=== PATIENT | female | born 1930 | race Caucasian/White ===

== ENCOUNTER 2017-01-30 22:16 | Inpatient (IN) | payer MEDICARE, BC ==
[~2017-01-30 22:16] MED LIST: ACIDOPHILUS LAC1 CAP PO; KEFLEX500 MG PO
[2017-01-30 23:28] LABS: BASOPHILS 0.2 % (0-2); EOSINOPHILS 1.6 % (0-7); HEMATOCRIT 34.2 % (36.0-48.0); HEMOGLOBIN 11.1 g/dL (12-16); IMMATURE GRANULOCYTES 2.4 % (0-5); LYMPHOCYTES 18.6 % (15-50); MCH 30.3 pg (26.0-34.0); MCHC 32.5 g/dL (31.0-37.0); MCV 93.4 fL (80.0-100.0); MEAN PLATELET VOLUME 9.4 fL (7.4-10.4); MONOCYTES 7.5 % (2-11); NEUTROPHILS 69.7 % (40-80); PLATELET COUNT 267 10x3/uL (130-400); RBC 3.66 10x6/uL (4.00-5.40); RDW 14.8 % (11.5-14.5); WBC 8.3 10x3/uL (4.8-10.8)
[2017-01-31] LABS: ALBUMIN 2.5 g/dL (3.4-5.0); BILIRUBIN - TOTAL 0.26 mg/dL (0.2-1.3); CALCIUM 8.2 mg/dL (8.5-10.1); CARBON DIOXIDE 27.8 mmol/L (21.0-32.0); CREATININE - SERUM 1.1 mg/dL (0.6-1.3); POTASSIUM - SERUM 3.8 mmol/L (3.5-5.1); PROTEIN - SERUM 7.3 g/dL (6.4-8.2)
[2017-01-31 00:08] LABS: MAGNESIUM - SERUM 2.1 mg/dL (1.8-2.4); TROPONIN-I 0.019 ng/mL (0.000-0.060)
[2017-01-31 00:11] LABS: APPEARANCE HAZY (CLEAR); BACTERIA FEW /hpf (NONE SEEN); BILIRUBIN NEGATIVE (NEGATIVE); COLOR YELLOW (YELLOW); EPITHELIAL CELLS 0-5 /hpf (0-5); GLUCOSE 250 mg/dL (NEGATIVE); KETONE NEGATIVE (NEGATIVE); NITRITE NEGATIVE (NEGATIVE); PROTEIN 1+ mg/dL (NEGATIVE); RED CELLS - URINE OCC /hpf (0-5); SPECIFIC GRAVITY 1.015 (1.005-1.020); WHITE CELLS - URINE RARE /hpf (0-5)
[2017-01-31 04:00] VITALS: BP 180/84
[2017-01-31 05:40] VITALS: BP 180/84; BMI 27.4
[2017-01-31] MEDS ORDERED: ZANTAC150 MG PO (06:47)
[2017-01-31] MEDS ORDERED: ACETAMINOPHEN325 MG PO (06:48)
[2017-01-31] MEDS ORDERED: TRAZODONE HCL50 MG PO (06:48)
[2017-01-31] MEDS ORDERED: OMEPRAZOLE20 M1 PO (06:49)
[2017-01-31] MEDS ORDERED: K-TAB10 MEQ PO (06:50)
[2017-01-31] MEDS ORDERED: GAS-X80 MG PO (06:51)
[2017-01-31] MEDS ORDERED: METOPROLOL TAR100 M1 PO (06:52)
[2017-01-31] MEDS ORDERED: MILK OF MAGNESI30 ML PO (06:52)
[2017-01-31] MEDS ORDERED: FUROSEMIDE20 MG PO (06:53)
[2017-01-31] MEDS ORDERED: LASIX20 MG PO (06:54)
[2017-01-31] MEDS ORDERED: JANUVIA50 MG PO (06:55)
[2017-01-31] MEDS ORDERED: DITROPAN X5 MG/BOTTL PO (06:56)
[2017-01-31] MEDS ORDERED: COLACE100 MG PO (06:56)
[2017-01-31] MEDS ORDERED: ASPIRIN81 MG PO (06:57)
[2017-01-31] MEDS ORDERED: ARICEPT5 MG PO (06:57)
--- NOTE | 2017-01-31 07:00 | NUR ---
REPORT RECEIVED, ASSUMED CARE OF PT. RESTING WITH EYES SHUT, EASILY AROUSED. NO NEEDS VOICED AT THIS TIME. L FOREARM IV SALINE LOCKED, DRSG C/D/I. CONNER ALARM ON . BED IN LOWEST POSITION, SIDE RAILS UP X 2, CALL LIGHT WITHIN REACH.
[2017-01-31 08:07] VITALS: BP 146/84
[2017-01-31 08:18] LABS: BASOPHILS 0.2 % (0-2); EOSINOPHILS 1.3 % (0-7); HEMATOCRIT 33.4 % (36.0-48.0); HEMOGLOBIN 10.7 g/dL (12-16); IMMATURE GRANULOCYTES 1.5 % (0-5); LYMPHOCYTES 14.6 % (15-50); MCH 29.9 pg (26.0-34.0); MCV 93.3 fL (80.0-100.0); MEAN PLATELET VOLUME 9.3 fL (7.4-10.4); MONOCYTES 9.1 % (2-11); NEUTROPHILS 73.3 % (40-80); PLATELET COUNT 256 10x3/uL (130-400); RBC 3.58 10x6/uL (4.00-5.40); RDW 14.7 % (11.5-14.5); WBC 9.6 10x3/uL (4.8-10.8)
[2017-01-31 11:55] VITALS: BP 152/86
[2017-01-31 11:58] VITALS: BMI 27.3
--- NOTE | 2017-01-31 15:33 | NUR ---
NOTIFIED DR. HERNANDEZ OF NEED TO COVER FOR DVT SCD'S COULD NOT BE USED DUE TO CELLULITIS OF BILATERAL LE
[2017-01-31 16:00] VITALS: BP 144/75
--- NOTE | 2017-01-31 16:46 | NUR ---
PT LEFT FLOOR WITH IMAGING
[2017-01-31 20:00] VITALS: BP 157/82
--- NOTE | 2017-01-31 23:23 | NUR ---
ASSESSED, PT IS ASLEEP WITH EASY RESPIRATIONS AND NO DISTRESS NOTED. DRESSING IS OFF HER HEAD DUE TO HER CONFUSION. THE BED IS LOW, RAILS UP X'S [address]ARM IN PL[address] AND CLL LIGHT AT HAND.
[2017-02-01] VITALS (7 sets, daily range): BP systolic 154–171; BP diastolic 77–92
[2017-02-01 04:48] LABS: BASOPHILS 0.3 % (0-2); EOSINOPHILS 1.9 % (0-7); HEMOGLOBIN 10.7 g/dL (12-16); LYMPHOCYTES 22.1 % (15-50); MCH 30.1 pg (26.0-34.0); MCHC 32.4 g/dL (31.0-37.0); MEAN PLATELET VOLUME 9.4 fL (7.4-10.4); MONOCYTES 9.6 % (2-11); NEUTROPHILS 65.1 % (40-80); PLATELET COUNT 271 10x3/uL (130-400); RBC 3.55 10x6/uL (4.00-5.40); WBC 7.8 10x3/uL (4.8-10.8)
[2017-02-01 05:12] LABS: ALBUMIN 2.4 g/dL (3.4-5.0); ANION GAP 9.3 mmol/L (8-16); BILIRUBIN - TOTAL 0.4 mg/dL (0.2-1.3); CALCIUM 8.5 mg/dL (8.5-10.1); CARBON DIOXIDE 29.3 mmol/L (21.0-32.0); CREATININE - SERUM 1.1 mg/dL (0.6-1.3); POTASSIUM - SERUM 3.6 mmol/L (3.5-5.1); PROTEIN - SERUM 6.6 g/dL (6.4-8.2)
--- NOTE | 2017-02-01 09:13 | NUR ---
PT CONFUSED AT THIS TIME IV TO LEFT AC PATENT AND INTACT AT THIS TIME SRX2 BED AT LOWEST SETTING CALL LIGHT WITHIN REACH WILL CONTINUE TO MONITOR
--- NOTE | 2017-02-01 19:39 | NUR ---
PATIENT RESTING IN BED WITH NO VISIBLE SIGNS OF DISTRESS. REPOSITIONED PT IN BED WITH PURNIMA EVANGELISTA. PLACED NEW BLUE SOCKS AND [place] STATLOCK ON PT. COMPLETED ASSESSMENT. BED IN LOWEST POSITION, CALL LIGHT WITHIN REACH, AND CONNER ALARM ON. ENCOURAGED THE PT TO CALL IF SHE HAS NEEDS.
--- NOTE | 2017-02-02 03:45 | NUR ---
RESITED IV TO RIGHT FOREARM 22 G 2ND ATTEMPT. PT TOLERATED WELL.
[2017-02-02 04:00] VITALS: BP 167/87
[2017-02-02 05:39] LABS: BASOPHILS 0.2 % (0-2); EOSINOPHILS 0.9 % (0-7); HEMATOCRIT 36.2 % (36.0-48.0); HEMOGLOBIN 11.3 g/dL (12-16); IMMATURE GRANULOCYTES 1.4 % (0-5); LYMPHOCYTES 16.6 % (15-50); MCH 29.3 pg (26.0-34.0); MCHC 31.2 g/dL (31.0-37.0); MCV 93.8 fL (80.0-100.0); MEAN PLATELET VOLUME 9.5 fL (7.4-10.4); MONOCYTES 6.8 % (2-11); NEUTROPHILS 74.1 % (40-80); PLATELET COUNT 298 10x3/uL (130-400); RBC 3.86 10x6/uL (4.00-5.40); RDW 15.3 % (11.5-14.5); WBC 8.7 10x3/uL (4.8-10.8)
[2017-02-02 06:24] LABS: ALBUMIN 2.4 g/dL (3.4-5.0); ANION GAP 14.2 mmol/L (8-16); BILIRUBIN - TOTAL 0.5 mg/dL (0.2-1.3); CALCIUM 8.4 mg/dL (8.5-10.1); CARBON DIOXIDE 26.6 mmol/L (21.0-32.0); CREATININE - SERUM 1.2 mg/dL (0.6-1.3); POTASSIUM - SERUM 3.8 mmol/L (3.5-5.1); PROTEIN - SERUM 7.4 g/dL (6.4-8.2)
--- NOTE | 2017-02-02 07:15 | NUR ---
PT PULLED IV OUT CATHETER INTACT. RESITED TO POSTERIOR RIGHT FOREARM 22 G 1ST ATTEMPT. PT TOLERATED WELL.
--- NOTE | 2017-02-02 07:40 | NUR ---
PT CONFUSED AOX1 RESP EVEN AND NONLABORED PT DENIES NEEDS AT THIS TIME IV TO LEFT FOREARM PATENT AND INTACT AT THIS TIME SRX3 BED AT LOWEST SETTING CALL LIGHT WITHIN REACH WILL CONTINUE TO MONITOR POSIALARM ACTIVATED AND FUNCTIONING PROPERLY
[2017-02-02 08:10] VITALS: BP 155/87
[2017-02-02 11:52] VITALS: BP 136/78
[2017-02-02 16:13] VITALS: BP 186/89
--- NOTE | 2017-02-02 21:15 | NUR ---
PT CONFUSED AND RESTLESS. PULLING AT IV AND [place] LINES. GAVE ATIVAN 0.5 MG PO AND SCHEDULED MEDS. BLE RED WITH SCABS/SORES. LACERATION TO BACK OF HEAD SCABBED OVER. COMPLETE ASSESSMENT PER FLOW-SHEET. WILL CONTINUE TO MONITOR.
[2017-02-02 21:22] VITALS: BP 160/88
--- NOTE | 2017-02-03 02:20 | NUR ---
PT PULLED OUT LEFT HAND IV CATHETER INTACT. RESITED TO RIGHT FOREARM 22 G 2ND ATTEMPT. PT TOLERATED WELL. WILL CONTINUE TO MONITOR.
[2017-02-03 04:00] VITALS: BP 175/99
[2017-02-03 05:26] LABS: BASOPHILS 0.3 % (0-2); EOSINOPHILS 2.3 % (0-7); HEMATOCRIT 34.1 % (36.0-48.0); HEMOGLOBIN 10.9 g/dL (12-16); IMMATURE GRANULOCYTES 1.1 % (0-5); LYMPHOCYTES 20.5 % (15-50); MCH 29.9 pg (26.0-34.0); MCV 93.4 fL (80.0-100.0); MEAN PLATELET VOLUME 9.5 fL (7.4-10.4); MONOCYTES 11.8 % (2-11); PLATELET COUNT 265 10x3/uL (130-400); RBC 3.65 10x6/uL (4.00-5.40); RDW 15.3 % (11.5-14.5); WBC 6.6 10x3/uL (4.8-10.8)
[2017-02-03 05:50] LABS: ALBUMIN 2.4 g/dL (3.4-5.0); ANION GAP 14.3 mmol/L (8-16); BILIRUBIN - TOTAL 0.4 mg/dL (0.2-1.3); CALCIUM 8.1 mg/dL (8.5-10.1); CARBON DIOXIDE 27.4 mmol/L (21.0-32.0); CREATININE - SERUM 1.1 mg/dL (0.6-1.3); POTASSIUM - SERUM 3.7 mmol/L (3.5-5.1); PROTEIN - SERUM 6.5 g/dL (6.4-8.2)
--- NOTE | 2017-02-03 07:20 | NUR ---
ASSESSMENT PER FLOW SHEET.PT WITHOUT DISTRESS.AWAKENS INT AND IS NON VERBAL AT PRESENT.SHE DOESNT WANT TO BE BOTHERED.FALL PREVENTION IN PLACE WITH CONNER MAT ON AND FUNCTIONING.DOOR OPEN TO MONITOR
[2017-02-03 08:00] VITALS: BP 178/93
[2017-02-03 12:14] VITALS: BP 171/97
[2017-02-03] MEDS ORDERED: OMNICEF300 MG PO (12:22)
--- NOTE | 2017-02-03 13:19 | NUR ---
PATIENT BEING DISCHARGED TODAY VIA EMS [facility]. I SPOKE WITH PATIENT TO SEE IF THERE WAS ANYONE I COULD CALL AND SHE COULD NOT ANSWER. IMM SERVED PATIENT WILL BE GOING TO A SKILLED BED
--- NOTE | 2017-02-03 14:15 | NUR ---
REPORT TO [facility],SPOKE WITH FRANKLIN.
--- NOTE | 2017-02-03 14:24 | NUR ---
IV DCD WITH CATH INTACT.[place] DCD WITH 1200CC OF YELLOW URINE IN BAG.
--- NOTE | 2017-02-03 14:50 | NUR ---
LEFT UNNIT WITH [facility] FOR TRANSPORT TO [facility]
== END 2017-02-03 14:51 | DRG 603 ==
LOC: D.ER 22:16 → D.MS 01-31 02:23
PROVIDERS: Emergency Medicine; ADMIT Family Medicine
PROC: 0T9B70Z Drainage of Bladder with Drainage Device, Via Natural or Artificial Opening (ICD-10-PCS; principal; 2017-01-30)
DX: L03.116 Cellulitis of left lower limb (principal); I48.92 Unspecified atrial flutter; L03.115 Cellulitis of right lower limb; E11.65 Type 2 diabetes mellitus with hyperglycemia; Z79.84 Long term (current) use of oral hypoglycemic drugs; F03.90 Unspecified dementia, unspecified severity, without behavioral disturbance, psychotic disturbance, mood disturbance, and anxiety; K21.9 Gastro-esophageal reflux disease without esophagitis; S09.90XA Unspecified injury of head, initial encounter; W19.XXXA Unspecified fall, initial encounter; I48.91 Unspecified atrial fibrillation; I50.9 Heart failure, unspecified; D64.9 Anemia, unspecified

== ENCOUNTER 2017-02-08 18:56 | Emergency (ER) | payer MEDICARE, BC ==
[~2017-02-08 18:56] MED LIST changes: +ACETAMINOPHEN325 MG PO; +ARICEPT5 MG PO; +ASPIRIN81 MG PO; +COLACE100 MG PO; +DITROPAN X5 MG/BOTTL PO; +FUROSEMIDE20 MG PO; +GAS-X80 MG PO; +JANUVIA50 MG PO; +K-TAB10 MEQ PO; +LASIX20 MG PO; +METOPROLOL TAR100 M1 PO; +MILK OF MAGNESI30 ML PO; +OMEPRAZOLE20 M1 PO; +OMNICEF300 MG PO; +TRAZODONE HCL50 MG PO; +ZANTAC150 MG PO
== END 2017-02-09 00:23 ==
LOC: D.ER 18:56
DX: S16.1XXA Strain of muscle, fascia and tendon at neck level, initial encounter (principal); W05.0XXA Fall from non-moving wheelchair, initial encounter; Y93.89 Activity, other specified; Y92.129 Unspecified place in nursing home as the place of occurrence of the external cause; M54.2 Cervicalgia; I50.9 Heart failure, unspecified; F03.90 Unspecified dementia, unspecified severity, without behavioral disturbance, psychotic disturbance, mood disturbance, and anxiety; I10 Essential (primary) hypertension; E11.9 Type 2 diabetes mellitus without complications

== ENCOUNTER → 2017-02-13 13:44 | Outpatient (CLI) | payer MEDICARE, BC ==
[2017-01-31 11:58] VITALS: BMI 27.3
== END | disposition home or self-care (01) ==
LOC: D.MRI 13:30
DX: E87.6 Hypokalemia (principal); E56.9 Vitamin deficiency, unspecified; R60.9 Edema, unspecified; G47.00 Insomnia, unspecified; I10 Essential (primary) hypertension

== ENCOUNTER 2017-05-04 13:36 | Inpatient (IN) | payer MEDICARE, BC ==
[~2017-05-04] VITALS: Ht 172.7 cm; Wt 83.5 kg
--- NOTE | ~2017-05-04 | EC ---
PATIENT:CORDELL ADAMES DATE OF SERVICE: 05/04/17 SEX: F MEDICAL RECORD: [id number] DATE OF : 32 LOCATION:[facility] AGE OF PATIENT: 86 ADMISSION DATE: 05/04/17 REFERRING PHYSICIAN: INTERPRETING PHYSICIAN: DEANNE TURNER MD ECHOCARDIOGRAM REPORT ECHO CHARGES 4 ECHO COMPLETE CLINICAL DIAGNOSIS: BILATERAL PLEURAL EFFUSION ECHOCARDIOGRAPHIC MEASUREMENTS (adult normal given) AC root (d.<3.7cm) 2.8 cm LV Septum d (<1.2 cm> 1.3 cm Valve Excursion 1.6 cm LV Septum (systole) 1.9 cm Left Atria (s.<4.0cm> 4.3 cm LVPW d(<1.2cm) 1.2 cm RV (d.<2.3cm) 3.0 cm LVPW (sytole) 2.2 cm LV diastole(<5.6CM) 3.7 cm MV E-F(>70mm/sec) cm LV systole 1.8 cm LVOT Diameter 1.6 cm MV exc.(>10mm) cm Est.ejection fraction (50-75%) % Pericardial Effusion N DOPPLER: LVIT cm/sec A 42.0 cm/sec E 110 cm/sec LA cm/sec RVSP 79.0 mmHg LVOT 73.0 cm/sec AOP1/2T m/s Asc. Ao 153 cm/sec RVOT 62.0 cm/sec RA cm/sec PA 87.0 cm/sec AV Gradient Peak 9.3 mmHg AV Mean 4.6 mmHg AV Area 1.1 cm MV Gradient Peak 5.1 mmHg MV Mean 2.0 mmHg MV Area cm COMMENTS: Gelatin Plant Supervisor: Dung HOLLANDOE Double Cutter: Erica Fernandez TAPE# PACS DATE OF SERVICE: 05/05/2017 PROCEDURE: Echocardiogram FINDINGS: 1. Left ventricular chamber size is within normal limits. Left ventricular systolic function is normal. Overall ejection fraction estimated at 50%. 2. Left atrium is enlarged at 4.3 cm. Right atrium and right ventricle chamber sizes are as well mildly dilated. 3. Valvular structures have normal structure and motion. ECHOCARDIOGRAM REPORT [id number] CORDELL ADAMES 4. Doppler interrogation reveals [id number] mitral regurgitation, moderate tricuspid regurgitation, no other valvular insufficiency or stenosis. Pulmonary systolic pressure is significantly elevated estimated at 79 mmHg. 5. No evidence of pericardial effusion or left ventricular thrombus. TRANSINT:[id number] Voice Confirmation ID: [id number] DOCUMENT ID: [id number] DEANNE TURNER MD at 1323 CC: [id number] DICTATION DATE: 05/07/17 1021 MANUFACTURING QUALITY INSPECTOR: 05/07/17 1254 DIS IN 05/07/17 [id number] [place] [address]
[2017-05-04 14:53] LABS: BASOPHILS 0.3 % (0-2); EOSINOPHILS 0.7 % (0-7); HEMATOCRIT 42.9 % (36.0-48.0); HEMOGLOBIN 13.2 g/dL (12-16); IMMATURE GRANULOCYTES 1.4 % (0-5); LYMPHOCYTES 14.3 % (15-50); MCH 27.5 pg (26.0-34.0); MCHC 30.8 g/dL (31.0-37.0); MCV 89.4 fL (80.0-100.0); MONOCYTES 11.5 % (2-11); NEUTROPHILS 71.8 % (40-80); PLATELET COUNT 182 10x3/uL (130-400); WBC 7.1 10x3/uL (4.8-10.8)
[2017-05-04 15:12] LABS: ALBUMIN 3.1 g/dL (3.4-5.0); ANION GAP 15.3 mmol/L (8-16); BILIRUBIN - TOTAL 0.81 mg/dL (0.2-1.3); CALCIUM 9.4 mg/dL (8.5-10.1); CREATININE - SERUM 1.3 mg/dL (0.6-1.3); POTASSIUM - SERUM 4.3 mmol/L (3.5-5.1); PROTEIN - SERUM 7.3 g/dL (6.4-8.2)
[2017-05-04 15:17] LABS: APPEARANCE HAZY (CLEAR); BILIRUBIN NEGATIVE (NEGATIVE); COLOR DK YELLOW (YELLOW); GLUCOSE NEGATIVE (NEGATIVE); KETONE NEGATIVE (NEGATIVE); NITRITE NEGATIVE (NEGATIVE); PROTEIN 2+ mg/dL (NEGATIVE); UROBILINOGEN NORMAL (NORMAL)
[2017-05-04 15:19] LABS: WHITE CELLS - URINE >50 /hpf (0-5)
[2017-05-04 15:20] LABS: BACTERIA MODERATE /hpf (NONE SEEN); EPITHELIAL CELLS 0-5 /hpf (0-5)
[2017-05-04 15:21] LABS: TROPONIN-I 0.055 ng/mL (0.000-0.060)
[2017-05-04 15:21] LABS: YEAST >1+ /hpf (NONE SEEN)
[2017-05-04 18:03] VITALS: BP 197/117
[2017-05-04 20:00] VITALS: BP 145/89
[2017-05-05 01:47] VITALS: BP 145/89; BMI 28.0
[2017-05-05 04:00] VITALS: BP 181/93
[2017-05-05 05:26] LABS: BASOPHILS 0.1 % (0-2); EOSINOPHILS 2.2 % (0-7); HEMATOCRIT 37.7 % (36.0-48.0); HEMOGLOBIN 11.6 g/dL (12-16); IMMATURE GRANULOCYTES 0.9 % (0-5); LYMPHOCYTES 15.5 % (15-50); MCH 27.7 pg (26.0-34.0); MCHC 30.8 g/dL (31.0-37.0); MEAN PLATELET VOLUME 10.5 fL (7.4-10.4); MONOCYTES 14.3 % (2-11); PLATELET COUNT 182 10x3/uL (130-400); RBC 4.19 10x6/uL (4.00-5.40); RDW 16.1 % (11.5-14.5); WBC 6.9 10x3/uL (4.8-10.8)
[2017-05-05 05:54] LABS: ANION GAP 10.9 mmol/L (8-16); CALCIUM 8.8 mg/dL (8.5-10.1); CARBON DIOXIDE 31.7 mmol/L (21.0-32.0); CREATININE - SERUM 1.1 mg/dL (0.6-1.3)
[2017-05-05 06:03] LABS: POTASSIUM - SERUM 3.6 mmol/L (3.5-5.1)
[2017-05-05 08:14] VITALS: BP 168/86
[2017-05-05 12:39] VITALS: Ht 172.7 cm; Wt 83.5 kg
[2017-05-05 13:11] VITALS: BP 164/84
[2017-05-05 17:27] VITALS: BP 141/78
[2017-05-05 20:00] VITALS: BP 158/87
[2017-05-06 06:20] LABS: BASOPHILS 0.2 % (0-2); EOSINOPHILS 0.1 % (0-7); HEMATOCRIT 42.2 % (36.0-48.0); HEMOGLOBIN 13.1 g/dL (12-16); IMMATURE GRANULOCYTES 0.7 % (0-5); LYMPHOCYTES 4.2 % (15-50); MCH 27.9 pg (26.0-34.0); MEAN PLATELET VOLUME 10.4 fL (7.4-10.4); MONOCYTES 8.2 % (2-11); NEUTROPHILS 86.6 % (40-80); PLATELET COUNT 211 10x3/uL (130-400); RBC 4.69 10x6/uL (4.00-5.40); RDW 16.6 % (11.5-14.5)
[2017-05-06 06:21] LABS: WBC 9.7 10x3/uL (4.8-10.8)
[2017-05-06 06:39] LABS: ALBUMIN 2.9 g/dL (3.4-5.0); ANION GAP 16.3 mmol/L (8-16); CARBON DIOXIDE 31.9 mmol/L (21.0-32.0); CREATININE - SERUM 1.3 mg/dL (0.6-1.3); POTASSIUM - SERUM 3.2 mmol/L (3.5-5.1); PROTEIN - SERUM 7.4 g/dL (6.4-8.2)
[2017-05-06 09:30] VITALS: BP 155/90
[2017-05-06 12:01] VITALS: BP 141/76
[2017-05-06 16:31] VITALS: BP 142/52
[2017-05-06 20:00] VITALS: BP 164/97
[2017-05-07 04:00] VITALS: BP 163/82
[2017-05-07 05:26] LABS: BASOPHILS 0.1 % (0-2); EOSINOPHILS 0.1 % (0-7); HEMOGLOBIN 12.6 g/dL (12-16); IMMATURE GRANULOCYTES 0.4 % (0-5); LYMPHOCYTES 4.8 % (15-50); MCH 27.9 pg (26.0-34.0); MCHC 30.7 g/dL (31.0-37.0); MCV 90.9 fL (80.0-100.0); MEAN PLATELET VOLUME 10.4 fL (7.4-10.4); MONOCYTES 9.7 % (2-11); NEUTROPHILS 84.9 % (40-80); PLATELET COUNT 201 10x3/uL (130-400); RBC 4.51 10x6/uL (4.00-5.40); RDW 16.8 % (11.5-14.5)
[2017-05-07 05:50] LABS: WBC 12.7 10x3/uL (4.8-10.8)
[2017-05-07 05:58] LABS: ALBUMIN 2.8 g/dL (3.4-5.0); ANION GAP 11.9 mmol/L (8-16); BILIRUBIN - TOTAL 1.14 mg/dL (0.2-1.3); CALCIUM 8.7 mg/dL (8.5-10.1); CARBON DIOXIDE 31.9 mmol/L (21.0-32.0); CREATININE - SERUM 1.3 mg/dL (0.6-1.3); PROTEIN - SERUM 7.1 g/dL (6.4-8.2)
[2017-05-07 05:59] LABS: POTASSIUM - SERUM 3.8 mmol/L (3.5-5.1)
[2017-05-07 08:16] VITALS: BP 145/78
[2017-05-07 12:25] VITALS: BP 145/81
[2017-05-07 16:21] VITALS: BP 119/67
[2017-05-07 20:00] VITALS: BP 137/82
== END 2017-05-07 23:00 | DRG 689 ==
LOC: D.ER 13:36 → D.MS 16:43
PROVIDERS: Emergency Medicine
DX: N39.0 Urinary tract infection, site not specified (principal); I50.33 Acute on chronic diastolic (congestive) heart failure; R00.0 Tachycardia, unspecified; I11.0 Hypertensive heart disease with heart failure; R06.03 Acute respiratory distress; R09.02 Hypoxemia; I48.91 Unspecified atrial fibrillation; E11.65 Type 2 diabetes mellitus with hyperglycemia; K21.9 Gastro-esophageal reflux disease without esophagitis; K59.00 Constipation, unspecified; Z66 Do not resuscitate; F03.90 Unspecified dementia, unspecified severity, without behavioral disturbance, psychotic disturbance, mood disturbance, and anxiety; M25.521 Pain in right elbow; W18.30XA Fall on same level, unspecified, initial encounter; Y92.129 Unspecified place in nursing home as the place of occurrence of the external cause